=== PATIENT | male | born 1960 | race Caucasian/White ===

== ENCOUNTER 2018-11-05 20:03 | Emergency (ER) | payer OTHER ==
[~2018-11-05] VITALS: Ht 165.1 cm; Wt 75.3 kg
[2018-11-05 20:09] VITALS: Ht 165.1 cm; Wt 75.3 kg
[2018-11-05] MEDS ORDERED: TETRACAINE 0.5% 4 ML OPH LEFT EYE SCH (21:30)
[2018-11-05] MEDS ORDERED: FLUORESCEIN STRIP LEFT EYE ONE (21:30)
[2018-11-05] MEDS ORDERED: ERYT1OIN6 LEFT EYE (21:40)
--- NOTE | 2018-11-05 21:48 | ERD ---
ER Documentation Chief Complaint Chief Complaint left eye redness, states poss foreign body x 5 days HPI 58-year-old male presents with left eye redness for the last 5 days. He may have had some irritation from grinding plaster. Tetanus is up-to-date. He has no visual changes or visual field deficits. He feels irritation underneath the upper eyelid primarily. He was not wearing glasses. ROS All systems reviewed and are negative except as per history of present illness. Medications Home Meds Active Scripts Erythromycin Base (Erythromycin) 1 Gm Oint...g., 1 APPLIC LEFT EYE QID for 7 Days Prov:ARNAUD KERR MD 11/05/18 Allergies Allergies: Coded Allergies: No Known Drug Allergies (Verified Allergy, Unknown, 11/05/18) PMhx/Soc Medical and Surgical Hx: pt denies Medical Hx, pt denies Surgical Hx Hx Alcohol Use: No Hx Substance Use: No Hx Tobacco Use: No Smoking Status: Never smoker FmHx Family History: No diabetes, No coronary disease, No other Physical Exam Vitals Vital Signs Date Temp Pulse Resp B/P (MAP) Pulse Ox O2 O2 Flow FiO2 Time Delivery Rate 11/05/18 97.0 60 18 165/76 98 20:09 (105) Physical Exam Const: No acute distress Head: Atraumatic Eyes: Scleral redness. There is a pterygium at the medial limbus. There is no anterior chamber abnormalities. Eyes are Lisseth and extraocular movements intact. No periorbital swelling or proptosis. Fluorescein shows no uptake. Negative stan sign. Visual acuity shows no acute abnormalities. ENT: Normal External Ears, Nose and Mouth. Neck: Full range of motion. No meningismus. Resp: Clear to auscultation bilaterally Cardio: Regular rate and rhythm, no murmurs Abd: Soft, non tender, non distended. Normal bowel sounds Skin: No petechiae or rashes Back: No midline or flank tenderness Ext: No cyanosis, or edema Neur: Awake and alert Psych: Normal Mood and Affect Results 24 hrs Current Medications Medications Dose Sig/Piter Start Time Status Last (Trade) Ordered Route PRN Stop Time Admin Dose Reason Admin Tetracaine 1 drop ONCE LEFT 11/05/18 HCl EYE 21:30 (Tetracaine 0.5% Steri-Unit Joann) Fluorescein 1 strip ONCE ONCE 11/05/18 DC Sodium LEFT EYE 21:30 (Vroze-Q-Iqef 11/05/18 21:31 p) Irrigating 1 applic ONCE ONCE 11/05/18 Solution LEFT EYE 22:00 (Eye Wash) 11/05/18 22:01 Procedures/MDM No foreign body appreciated on slit-lamp exam. Patient had relief with tetracaine drops. Patient presents with left eye irritation after possible plaster or sheet rock foreign body exposure. Doubt globe rupture. No signs of foreign body, ulcerations, acute visual abnormalities. Patient will be treated empirically for conjunctival abrasion with erythromycin ointment recommendations for ophthalmology follow-up. Patient has no signs or symptoms of visual changes, visual field deficits. There are no signs or symptoms to suggest orbital cellulitis, retinal detachment, optic neuritis, retinal artery ischemia, dendritic lesions, ulcers, threats to vision or additional eye emergencies. Doubt acute glaucoma. Patient will be discharged home with recommendations for primary care and ophthalmology follow-up within the next 1-2 days. They should otherwise return to the ER for persistent or worsening symptoms. Departure Diagnosis: Primary Impression: Conjunctivitis Conjunctivitis type: acute Acute conjunctivitis type: unspecified Lateral ity: left Qualified Codes: H10.32 - Unspecified acute conjunctivitis, left eye Condition: Stable Patient Instructions: Conjunctivitis Caused by Irritation Referrals: [facility] Hours: Mon - Fri 9:00 AM - 5:00 PM Additional Instructions: Unable to see any foreign body today. See ophthalmology for further evaluation despite treatment and recheck for visual changes, facial redness, new worsening symptoms otherwise. ARNAUD KERR MD Nov 05, 2018 21:48
[2018-11-05] MEDS ORDERED: OPHTHALMIC IRRIG SOLUTION 120 ML LEFT EYE ONE (22:00)
[2018-11-05 22:46] VITALS: BP 135/71; PULSE 56; RESP 18
== END 2018-11-05 22:46 | disposition home or self-care (01) ==
LOC: FTE 20:03
DX: H10.32 Unspecified acute conjunctivitis, left eye (principal)
CPT/HCPCS: Z7502; Z7610; 99283